=== PATIENT | female | born 1955 | race Caucasian/White ===

== ENCOUNTER 2016-10-20 18:35 | Emergency (ER) | payer OTHER ==
[~2016-10-20] VITALS: Ht 165.1 cm; Wt 71.7 kg
[2016-10-20 20:24] LABS: HEMATOCRIT 45.8 % (36.0-46.0); MCH 30.5 PG (29.0-34.0); MCHC 33.4 G/DL (30.0-36.0); MCV 91.2 FL (83-99); MEAN PLAT.VOLUME 9.9 uM^3 (9.5-12.4); PLATELET COUNT 231 K/uL (156-360); RBC DIS.WIDTH-CV 13.1 % (11.8-14.6); RBC DIS.WIDTH-SD 42.7 % (39-53); RED BLOOD COUNT 5.02 M/uL (3.80-5.20); WHITE BLOOD COUNT 7.1 K/uL (4.1-10.2)
[2016-10-20 20:32] LABS: CHLORIDE 105 mEq/L (99-109); POTASSIUM 4.6 mEq/L (3.7-5.4); SODIUM 143 mEq/L (136-147)
[2016-10-20 20:33] LABS: GLUCOSE 98 mg/dL (70-99)
[2016-10-20 20:35] LABS: ANION GAP 9 MEQ/L (2-14)
[2016-10-20 20:37] LABS: GFR ESTIMATE (CALCULATED) > 59 mL/min/
[2016-10-20 20:38] LABS: UREA NITROGEN (BUN) 13 mg/dL (9-23)
[2016-10-20 20:45] LABS: ERTH.SED.RATE 13 MM/HR (0-30)
[2016-10-20] MEDS ORDERED: FIORICET 50-301 EACH PO (22:23)
[2016-10-20] MEDS ORDERED: ATARAX,VISTARIL50 MG PO (22:23)
[2016-10-20 22:32] VITALS: BP 148/67
[2016-10-21 10:04] LABS: LYME DISEASE SEROLOGY SCREEN NEGATIVE (NEGATIVE)
== END 2016-10-20 22:33 | disposition home or self-care (01) ==
LOC: RME 18:35 → EME 18:35 → RME 22:33
PROVIDERS: Physician Assistant
DX: R51 Headache (principal); F43.9 Reaction to severe stress, unspecified
CPT/HCPCS: 70460; 70481; 80048; 85027; 85651; 86618; 99281; 99284; Q0177